=== PATIENT | male | born 1950 | race Caucasian/White ===

== ENCOUNTER 2021-09-30 10:02 | Outpatient (CLI) | payer MEDICARE, SELFPAY ==
--- NOTE | ~2021-09-30 | CT_ITS ---
EXAMINATION: CT diagnostic chest wo con DATE: 09/30/2021 11:07 INDICATION: Follow-up lung nodule TECHNIQUE: Computed tomography (CT) of the chest was performed without intravenous contrast. Automate d exposure control and iterative reconstruction technique were employed. Exam dose: 227.54 mGy-cm to zoey exam DLP. COMPARISON: None FINDINGS: Right upper lobe approximately 11.8 mm calcified pulmonary granuloma. No pulmonary infiltrate or consolidation. Normal heart size. No pericardial effusion. There is thoracic aortic and great vessel and coronary artery calcification. No thoracic aortic aneur ysm. No hilar or mediastinal mass lesion or lymphadenopathy. There are calcified right paratracheal and hi lar nodes. Normal morphology of the adrenal glands. No suspicious osteolytic or osteoblastic lesions. IMPRESSION: Calcified right upper lobe pulmonary granuloma and calcified right hilar and paratrachea l nodes, consistent with old granulomatous disease Reviewed, dictated and finalized at Location A. Reviewed, dictated and finalized at location B. IMPRESSION: Calcified right upper lobe pulmonary granuloma and calcified right hilar and paratracheal nodes, consistent with old granulomatous disease
== END 2021-09-30 10:03 | disposition home or self-care (01) ==
PROVIDERS: PCP Internal Medicine; Visit Provider Internal Medicine
DX: R91.1 Solitary pulmonary nodule (principal)
CPT/HCPCS: 71250

== ENCOUNTER 2021-10-20 08:41 | Outpatient (CLI) | payer MEDICARE, SELFPAY ==
--- NOTE | ~2021-10-20 | NM_ITS ---
EXAMINATION: NM stress w perf spect multi DATE: 10/20/2021 10:32 INDICATION: Other chest pain. TECHNIQUE: Rest images were obtained following intravenous administration of 10.5 mCi Tc99m tetrofosm in (Myoview). The patient performed an exercise activity. At peak exercise, 34.3 mCi Tc99m tetrofosmi n (Myoview) was administered intravenously, and stress images were obtained. Data was reconstructed i nto short axis and horizontal and vertical long axis SPECT images. Gated SPECT images were also obtai graciela. COMPARISON: Myocardial perfusion imaging 07/25/2006, chest CT 09/30/2021 FINDINGS: There is no definite reversible or fixed perfusion abnormality to suggest ischemia or infar ction. There is no segmental wall motion abnormality. Left ventricular ejection fraction measures 4 9%. IMPRESSION: 1. No definite ischemia or infarct. 2. Left ventricular ejection fraction measuring 49%. Reviewed, dictated and finalized at location A.
--- NOTE | 2021-10-20 09:28 | EST_ITS ---
Patient Info Name: Torsten Doe Age: 71 years : 1950 Gender: Male Ht: 73 in Wt: 192 lbs BSA: 2.13 m2 HR: 68 bpm BP: 128 / 75 mmHg Heart Rhythm: Sinus Rhythm Exam Date: 10/20/2021 9:39 AM Exam Location: [facility] Stress Patient Status: Outpatient Admit Date: 10/20/2021 Staff Ordering Physician: Lester Sen MD Attending Provider: Lester Sen MD Exercise Technologist: Cammy Benitez CT Exercise Physician: Jamari Conteh DO Exam Type: CA stress test treadmill w NM Study Info Indications R07.9 - Chest pain, unspecified A nuclear stress test was performed. Summary 1. 1. Negative Freddy exercise stress test for ischemic ST changes by ECG criteria. 2. 2. Good functional capacity, achieving 8.9 METs of workload. 3. 3. Hypertensive response to exercise. 4. 4. Appropriate HR response to exercise. 5. 5. Appropriate HR recovery at 1 minute post exercise. 6. 6. Nuclear scan to follow and will be reported separately. Please correlate with it. 7. 7. Patient informed of the above results. Protocol: Freddy Stress ECG Details Stage: REST Duration (min): 0 min : 57 sec Speed (mph): 0.0 Grade (%): 0 HR (bpm): 65 SBP (mmHg): 128 DBP (mmHg): 75 METS: --- Stage: REST Duration (min): 6 min : 17 sec Speed (mph): 0.0 Grade (%): 0 HR (bpm): 73 SBP (mmHg): 128 DBP (mmHg): 75 METS: --- Stage: STAGE 1 Duration (min): 1 min : 0 sec Speed (mph): 1.7 Grade (%): 10 HR (bpm): 88 SBP (mmHg): 128 DBP (mmHg): 75 METS: --- Stage: STAGE 1 Duration (min): 2 min : 0 sec Speed (mph): 1.7 Grade (%): 10 HR (bpm): 95 SBP (mmHg): 128 DBP (mmHg): 75 METS: --- Stage: STAGE 1 Duration (min): 3 min : 0 sec Speed (mph): 1.7 Grade (%): 10 HR (bpm): 101 SBP (mmHg): 203 DBP (mmHg): 77 METS: --- Stage: STAGE 2 Duration (min): 1 min : 0 sec Speed (mph): 2.5 Grade (%): 12 HR (bpm): 108 SBP (mmHg): 203 DBP (mmHg): 77 METS: --- Stage: STAGE 2 Duration (min): 2 min : 0 sec Speed (mph): 2.5 Grade (%): 12 HR (bpm): 144 SBP (mmHg): 210 DBP (mmHg): 92 METS: --- Stage: STAGE 2 Duration (min): 3 min : 0 sec Speed (mph): 2.5 Grade (%): 12 HR (bpm): 134 SBP (mmHg): 210 DBP (mmHg): 92 METS: --- Stage: STAGE 3 Duration (min): 0 min : 50 sec Speed (mph): 3.4 Grade (%): 14 HR (bpm): 122 SBP (mmHg): 210 DBP (mmHg): 92 METS: --- Stage: RECOVERY Duration (min): 0 min : 9 sec Speed (mph): 1.5 Grade (%): 0 HR (bpm): 146 SBP (mmHg): 210 DBP (mmHg): 92 METS: --- Stage: RECOVERY Duration (min): 1 min : 9 sec Speed (mph): 0.0 Grade (%): 0 HR (bpm): 102 SBP (mmHg): 228 DBP (mmHg): 75 METS: --- Stage: RECOVERY Duration (min): 2 min : 9 sec Speed (mph): 0.0 Grade (%): 0 HR (bpm): 91
--- NOTE | 2021-10-20 10:24 | ECHO_ITS ---
Patient Info Name: Torsten Doe Age: 71 years : 1950 Gender: Male Ht: 73 in Wt: 192 lbs BSA: 2.13 m2 HR: 66 bpm BP: 128 / 75 mmHg Heart Rhythm: Sinus Rhythm Technical Quality: Good Exam Date: 10/20/2021 10:49 AM Exam Location: [facility] Pulmonary Patient Status: Outpatient Admit Date: 10/20/2021 Staff Ordering Physician: Lester Sen MD Supervisor In Charge: Milagro Ca RDCS Attending Provider: Lester Sen MD Referring Physician: Mckinley MUSTAFA; Exam Type: CA echo doppler color flow Study Info Indications R07.89 - Other chest pain Complete two-dimensional, color flow and Doppler transthoracic echocardiogram is performed. Summary 1. Complete two-dimensional, color flow and Doppler transthoracic echocardiogram is performed. 2. Left ventricular chamber dimension is normal. 3. Left ventricular systolic function is normal, estimated at 55-60%. 4. The left ventricular diastolic function is grade I diastolic dysfunction. 5. E/e' 11 is mildly elevated. 6. Left atrial chamber dimension is mildly enlarged. 7. Interatrial septal aneurysm with no evidence of shunting. 8. The mitral valve has mildly calcified annulus. 9. No pulmonary hypertension, estimated pulmonary arterial systolic pressure is 21 mmHg. Left Ventricle E/e' 11 is mildly elevated. Left ventricular chamber dimension is normal. Left ventricular systolic function is normal, estimated at 55-60%. The left ventricular diastolic function is grade I diastolic dysfunction. Right Ventricle Right ventricular systolic function is normal and with normal TAPSE 1.8 cm. Right ventricular chamber dimension is normal. Left Atria Left atrial chamber dimension is mildly enlarged. Right Atria Right atrial chamber dimension is normal. Atrial Septum Interatrial septal aneurysm with no evidence of shunting. Aortic Valve The aortic valve is trileaflet. There is no aortic valve stenosis. There is no aortic valve regurgitation. Pulmonic Valve There is no pulmonic regurgitation. Mitral Valve The mitral valve has mildly calcified annulus. There is no mitral valve stenosis. There is no mitral valve regurgitation. Tricuspid Valve There is no tricuspid valve regurgitation. No pulmonary hypertension, estimated pulmonary arterial systolic pressure is 21 mmHg. Pericardium/Pleural There is no pericardial effusion. Inferior Vena Cava Normal inferior vena cava with >50% collapse upon inspiration consistent with normal right atrial pressure, 5 mmHg. Aorta The aortic root size at the sinus of Valsalva is normal. Left Ventricular Outflow Tract Name Value Normal LVOT 2D LVOT Diameter 2.2 cm LVOT Doppler LVOT Peak Gradient 3 mmHg LVOT Mean Gradient 1 mmHg LVOT VTI 17 cm LVOT VTI/AV VTI Ratio 0.6 LVOT Stroke Volume 64 ml LVOT CO 4.2 l/min LVOT CI 2.0 l/min/m2 Pulmonic Valve
== END 2021-10-20 08:42 | disposition home or self-care (01) ==
PROVIDERS: PCP Internal Medicine; Visit Provider Internal Medicine
DX: R07.89 Other chest pain (principal); R06.02 Shortness of breath
CPT/HCPCS: 78452; 93017; 93306; A9502

== ENCOUNTER 2023-04-26 09:47 | Outpatient (CLI) | payer MEDICARE, SELFPAY | END 2023-04-26 09:48 | disposition home or self-care (01) | LOC: ANHAUDIO 09:47 | PROVIDERS: PCP Internal Medicine; Visit Provider Internal Medicine | DX: H93.13 Tinnitus, bilateral (principal) | CPT/HCPCS: 92557; 92567 ==

== ENCOUNTER 2023-08-04 13:55 | Outpatient (CLI) | payer MEDICARE, SELFPAY ==
--- NOTE | ~2023-08-04 | US_ITS ---
US art doppler w press LE BI INDICATION: Muscle weakness TECHNIQUE: Segmental pressures and plethysmographic and Doppler waveforms of the brachial and lower e xtremity arteries were obtained. COMPARISON: None. FINDINGS: Right and left brachial artery pressures of 132 mm Hg and 137 mm Hg, respectively, are concordant (no rmal difference <= 30 mmHg). There is biphasic flow in the lower extremity arteries bilaterally. No s ignificant pressure gradients identified. The right ankle-brachial index (FREDA) is 1.39 (normal >= 0.9-1.0). The right great toe-brachial index (TBI) is 0.61 (normal >= 0.60). The left FREDA is 1.32. The left TBI is 0.62. IMPRESSION: 1. Normal bilateral ankle and toe brachial indices. Reviewed, dictated and finalized at location A.
== END 2023-08-04 13:56 | disposition home or self-care (01) ==
LOC: ANHIMG 13:56
PROVIDERS: PCP Internal Medicine; Visit Provider Internal Medicine
DX: I70.213 Atherosclerosis of native arteries of extremities with intermittent claudication, bilateral legs (principal); M79.604 Pain in right leg; M79.605 Pain in left leg; M62.81 Muscle weakness (generalized)
CPT/HCPCS: 93923

== ENCOUNTER 2023-08-16 09:51 | Outpatient (CLI) | payer MEDICARE, SELFPAY ==
--- NOTE | 2023-08-16 11:30 | NEURO_ITS ---
Impression: # Insulin dependent Diabetic complains of increasing numbness in lower extremities. # No motor or sensory electrical responses obtained. # Needle/EMG exam revealed severe scarcity of motor unit potentials with fibs. # Clinical correlation recommended. Nerve Conduction Studies Anti Sensory Summary Table Stim Site NR Peak (ms) P-T Amp (?V) Site1 Site2 Delta-P (ms) Dist (cm) (m/s) Left Saphenous Anti Sensory (Ant Med Mall) NO RESPONSE 14cm NR 14cm Ant Med Mall 0.0 Right Saphenous Anti Sensory (Ant Med Mall) NO RESPONSE 14cm NR 14cm Ant Med Mall 0.0 Left Sup Fibular Anti Sensory (Ant Lat Mall) NO RESPONSE 14 cm NR 14 cm Ant Lat Mall 16.0 Right Sup Fibular Anti Sensory (Ant Lat Mall) NO RESPONSE 14 cm NR 14 cm Ant Lat Mall 16.0 Left Sural Anti Sensory (Lat Mall) NO RESPONSE Calf NR Calf Lat Mall 16.0 Right Sural Anti Sensory (Lat Mall) NO RESPONSE Calf NR Calf Lat Mall 16.0 Motor Summary Table Stim Site NR Onset (ms) O-P Amp (mV) Site1 Site2 Delta-0 (ms) Dist (cm) (m/s) Left Peroneal Motor (Vastus Med) NO RESPONSE Ankle NR Popit Ankle 0.0 Popit NR Right Peroneal Motor (Vastus Med) NO RESPONSE Ankle NR Popit Ankle 0.0 Popit NR Left Tibial Motor (Abd Felder Brev) NO RESPONSE Ankle NR Knee NR Right Tibial Motor (Abd Felder Brev) NO RESPONSE Ankle NR Knee NR F Wave Studies NR F-Lat (ms) L-R F-Lat (ms) Left Peroneal (Mrkrs) (EDB) NO RESPONSE NR Right Peroneal (Mrkrs) (EDB) NO RESPONSE NR Left Tibial (Mrkrs) (Abd Hallucis) NO RESPONSE NR Right Tibial (Mrkrs) (Abd Hallucis) NO RESPONSE NR EMG Side Muscle Nerve Root Ins Act Fibs Amp Dur Recrt Comment Right AntTibialis Dp Br Fibular L4-5 Nml Nml Decr >12ms +2 Right Fibularis Long Sup Br Fibular L5-S1 Nml +1 Decr >12ms +2 Right Gastroc Tibial S1-2 Nml Nml Decr >12ms +2 Right Flex Dig Long Tibial L5-S2 Nml +1 Nml Nml Nml Right Ext Dig Brev Dp Br Fibular L5, S1 Nml Nml Decr >12ms +2 Left AntTibialis Dp Br Fibular L4-5 Nml Nml Decr >12ms +2 Left Gastroc Tibial S1-2 Nml Nml Decr >12ms +2 Left Fibularis Long Sup Br Fibular L5-S1 Nml +1 Decr >12ms +2 Left Flex Dig Long Tibial L5-S2 Nml +1 Decr >12ms +2 Left Ext Dig Brev Dp Br Fibular L5, S1 Nml Nml Nml >12ms +4 MTDD
== END 2023-08-16 09:52 | disposition home or self-care (01) ==
LOC: ANHNEURO 09:52
PROVIDERS: PCP Internal Medicine; Visit Provider Internal Medicine
DX: R20.2 Paresthesia of skin (principal); M62.81 Muscle weakness (generalized)
CPT/HCPCS: 95886; 95911

== ENCOUNTER 2024-10-11 02:00 | Day surgery (SDC) | payer MEDICARE, SELFPAY ==
[2024-10-04 08:48] VITALS: BMI 25.4
--- OUTSIDE RECORDS SUMMARY | 2024-10-11 02:03 | XMS_ITS | Continuity of Care Document ---
Author Organization [facility] Address [address] [facility] [address] [place] [address] Phone Care Team Providers Care Substance Abuse Prevention Coordinator Name Role Phone Elia VICTORIA, Yung Unavailable Unavailable Allergies, Adverse Reactions, Alerts Substance Reaction Status Criticality No Known Allergies Active No Inform ation Medications Medication Instructions Dosage Effective Dates (start - stop) Status Comments Mucinex D 60 mg-600 mg tablet,extended release take 1 tablet by oral route every 12 hours as needed - Active Synjardy 12.5 mg-1,000 mg tablet take 1 tablet by oral route 2 times every day 1.00 tablet - Active rosuvastatin 40 mg tablet take 1 tablet by oral route every day 40 MG - Active Humalog KwikPen U-200 Insulin 200 unit/mL (3 mL) subcutaneous inject by subcutaneous route per prescriber's instructions. Insulin dosing requires individualization. 0.00 - Active Tresiba FlexTouch U-100 insulin 100 unit/mL (3 mL) subcutaneous pen inject by subcutaneous route as per insulin protocol 0.00 - Active Vitamin D3 400 unit capsule - Active losartan 50 mg tablet take 1 tablet by oral route every day 50 MG - Active multivitamin capsule take 1 capsule by oral route every day - Active Procedures Procedure Date EYE EXAM & TREATMENT EYE EXAM ESTABLISHED PAT POSTOP FOLLOW-UP VISIT AFTER CATARACT LASER SURGERY OFFICE/OUTPATIENT VISIT, EST POSTOP FOLLOW-UP VISIT POSTOP FOLLOW-UP VISIT POSTOP FOLLOW-UP VISIT CATARACT SURG W/IOL, 1 STAGE OFFICE/OUTPATIENT VISIT, NEW OPHTHALMIC BIOMETRY OPHTHALMIC BIOMETRY Medical Records Advance Directives Directive Yes / No Effective Date File Name No Information Encounters Encounter Description Practice Location Reason(s) For Visit Diagnoses Date Provider Providers Copied on Encounter [facility], [address] [place] [address], [id number], tel:[phone] OPH CONSULT YESSICA GRANDE Diabetes f/u (chief complaint) Presence of pseudophakiaT ype 2 diabetes mellitus with mild nonproliferat edith diabetic retinopathy without macular edema, bilateralDerm atochalasis of right upper eyelidDermato chalasis of left upper eyelid 0 Elia Barragan. [address] [place] [address], [place] [address], [place], [address], [place]. tel:[phone] Referring Provider: Lester Sen MD, [address], [place], [address]. tel:[phone] [facility], [address] [place] [address], [place], [place], [id number], [place] tel:[phone] OPH CONSULT YESSICA GRANDE DM (chief complaint)I OL check (chief complaint) Type 2 diabetes mellitus without complications Presence of pseudophakiaT ear film insufficiency of bilateral lacrimal glands Elia Barragan. [address] [place] [address], [place] [address], [place], [address], [place]. tel:[phone] [facility], [address] [place] [address], [place], [place], [id number], [place] tel:[phone] OPH CONSULT YESSICA GRANDE vision is improved OS (chief complaint)n o complaints OU (chief complaint) No Information Elia Barragan. [address] [place] [address], [place] [address], [place], [address], [place]. tel:[phone] Referring Provider: Yung Cruz, [address] [place] [address], [place], [address]. tel:[phone] [facility], [address] [place] [address], [id number], [place] tel:[phone] [facility] No Information 5 Elia Barragan. [address] [place] [address], [facility] [address], [place], [address], [place]. tel:[phone] Referring Provider: Yung Cruz, [address] [place] [address] [address], [place], [address]. tel:[phone] OFFICE/OUTPA TIENT VISIT, [facility], [address] [place] [address], [place], [place], [id number], [place] tel:[phone] [facility] [address] No Information 5 Elia Barragan. [address] [place] [address], [place] [address], [place], [address], [place]. tel:[phone] Referring Provider: Yung Cruz, [address] [place] [address], [place], [address]. tel:[phone] [facility], [address] [place] [address], [place], [place], [id number], [place] tel:[phone] OPH CONSULT YESSICA GRANDE no complaints OS (chief complaint) No Information 3 Elia Barragan. [address] [place] [address], [facility] [address], [place], [address], [place]. tel:[phone] Referring Provider: Yung Cruz, [address] [place] [address], [place], [address]. tel:[phone] [facility], [address] [place] [address], [place], [place], [id number], [place] tel:[phone] OPH CONSULT YESSICA GRANDE thought that when lenses were disc. that OS (chief complaint) No Information 3 Elia Barragan. [address] [place] [address], [place] [address], [place], [address], [place]. tel:[phone] Referring Provider: Yung Cruz, [address] [place] [address], [place], [address]. tel:[phone] [facility], [address] [place] [address], [place], [place], [id number], [place] tel:[phone] OPH CONSULT YESSICA GRANDE no complaints OS (chief complaint) No Information 3 Elia Barragan. [address] [facility], [address], [place], [address], [place]. tel:[phone] Referring Provider: Yung Cruz, [address] [place] [address] [address], [place], [address]. tel:[phone] [facility], [address] [place] [address], [place], [place], [id number], [place] tel:[phone] [facility] [place] No Information 3 Elia Barragan. [address] [place] [address], [address], [place], [address], [place]. tel:[phone] Referring Provider: Yung Cruz, [address] [place] [address] [address], [place], [address]. tel:[phone] OFFICE/OUTPA TIENT VISIT, [facility], [address] [place] [address], [place], [place], [id number], [place] tel:[phone] OPH CONSULT YESSICA GRANDE Cortical senile cataractLens replaced by other meansDiabetes Mellitus, Juvenile, ControlledPre sbyopia 3 Elia Barragan. [address] [place] [address], [address], [place], [address], [place]. tel:[phone] Referring Provider: Yung Cruz, [address] [place] [address] [address], [place], [address]. tel:[phone] [facility], [address] [place] [address], [place], [place], [id number], [place] tel:[phone] OPH CONSULT YESSICA GRANDE No Information 3 Elia Barragan. [address] [place] [address], [address], [place], [address], [place]. tel:[phone] Referring Provider: Yung Cruz, [address] [place] [address] [address], [address]. tel:[phone] Family History Family Member Type Diagnosis Age At Onset No Information Payers Payer name Insurance type Covered constitution party ID Authormorenaa tiambika(s) No Information Social History Type Description Quantity Date Captured Comments Alcohol Use Details 1 drink moderate 0 Caffeine Use Details Unknown Tobacco Use Status No Information Smoking Status Never smoker Sex Male Chief Complaint And Reason For Visit From encounter dated '05/24/2019 08:10'. Diabetes f/u (chief complaint). Description: The 68 year old male presents for a 6 month f/u evaluation of Diabetes. Pt has no complaints today. VA is unchanged. Pt uses readers and has no issues. Noeye pain or discomfort. Last A1C was around 7 taken a couple months ago. Reason For Referral Reason For Referral No Information History Of Present Illness Encounter Date Complaint History Of Prese nt Illness Diabetes f/u The 68 year old male presents for a 6 month f/u evaluation of Diabetes. Pt has no complaints today. VA is unchanged. Pt uses readers and has no issues. No eye pain or discomfort. Last A1C was around 7 taken a couple months ago. DM The 68 year old male presents for evaluation of DM in the right eye and left eye. Last exam was about 4 year(s) ago. The condition is constant. The condition is stable. Pt is followed by Dr. Sen and last A1C is unknown. Avg AM BS 125. IOL check The patient is p resent for evaluation of IOL check in the right eye and left eye. Last exam was about 1 year(s) ago. The condition is constant. The condition is stable. PT reports distance and near vision are stable OU and has been wearing otc readers. vision is improved vision is imp roved OS no complaints no complaints OU no complaints no complaints OS thought that when le nses were disc. that thought that when lenses were disc. that OS no complaints no complaints OS Functional Status Date Functional Assessmen t No Information Instructions Date Instruction Additional Infor john Impression/Plan Related to [place] tochalasis of right upper eyelid Impression/Plan Related to [place] tochalasis of left upper eyelid Impression/Plan Related to Type 2 diabetes mellitus with mild nonproliferative diabetic retinopathy without macular edema, bilateral Impression/Plan Related to Prese nce of pseudophakia RTO 1 yr Complete Exam with BAS Related to Tear film insufficiency of bilateral lacrimal glands Impression/Plan Related to Type 2 diabetes mellitus without complications Impression/Plan Related to Prese nce of pseudophakia Impression/Plan Related to Tear film insufficiency of bilateral lacrimal glands - Return in 3 months Related to Cataract 1 month - Return in 3 weeks Related to C ataract 1 week - Return in 1 week. Related to C ataract 1 day, 2nd eye Presbyopia OS - Gave pt sample of +2.00 contact lens (Acuvue Oasys) so he can try monovision to decide if he wants to go with that for surgery. Yoselin explained to patient that if he wants an rx beyond the trial lens, he will have to come in for a fitting Related to Presbyopia Cataract, Cortical O S Pseudophakia OD Diabetes Mellitus, Juvenile, Controlled OD - schedule L phaco & pcl monovision (1.75 ) pt not sure if he wants monovisionwill think about it and decide before sx Related to Diabetes Mellitus, Juvenile, Controlled - Return in 1 day wi Yung Rodrigez MD for post op exam. Related to Diabetes Mellitus, Juvenile, Controlled Assessments Type Assessment Date assessment Presence of pseudophakia 2019 impression Presence of pseudophakia: Z96.1 assessment Type 2 diabetes boogie itus with mild nonproliferative diabetic retinopathy without macular edema, bilateral impression Type 2 diabetes boogie itus with mild nonproliferative diabetic retinopathy without macular edema, bilateral: E11.3293 assessment Dermatochalasis of right upper e yelid assessment Dermatochalasis of left upper ey elid impression Dermatochalasis of left upper ey elid: H02.834 impression Dermatochalasis of right upper e lyndond: H02.831 Patient Care Teams Name Effective Dates (start - stop) Status Members No Information
[2024-10-11 06:24] VITALS: BP 113/68; PULSE 104; RESP 20; TEMP 36.4; O2SAT 100; BMI 25.4
[2024-10-11] MEDS: LACTATED RINGERS 1,000 ML 150 ML IV CONT (06:38)
--- NOTE | 2024-10-11 06:39 | SUR.PREOP ---
Blood Sugar 139 per pt's glucose monitoring patch.
--- NOTE | 2024-10-11 07:05 | P.PNAN_ITS ---
Anes - Initial Pre Proc Eval Procedure: Operation Date: 10/11/24 07:30 Proposed Procedures p Colonoscopy - Angelito Ramos MD Date/Time: 10/11/24 07:05 Surgeon: Angelito Ramos MD Pre Op Diagnosis: Personal hx of colon polyps Patient Data Age: 74 Gender: M Height: 1.83 m Weight: 85.2 kg Last Vital Signs Temp 36.4 C 10/11/24 06:24 Pulse 104 H 10/11/24 06:24 Resp 20 10/11/24 06:24 BP 113/68 10/11/24 06:24 Pulse Ox 100 10/11/24 06:24 O2 Del Method Room Air 10/11/24 06:24 Allergies Allergy/AdvReac Type Severity Reaction Status Date / Time No Known Allergies Allergy Verified 10/11/24 06:22 Home Medications ?Medication ?Instructions ?Recorded ?Confirmed ?Type omega-3 fatty acids 1,000 mg 1,200 mg PO DAILY 06/15/21 10/11/24 History capsule (Fish Oil Concentrate) aspirin 81 mg tablet,delayed 81 mg PO DAILY 09/07/21 10/11/24 History release (Adult Low Dose Aspirin) fluticasone propionate 50 2 spray intranasal BID #16 grams 10/31/23 10/11/24 Rx mcg/actuation nasal spray,suspension (Flonase Allergy Relief) glucagon 1 mg/0.2 mL subcutaneous 1 mg (0.2 mL) subcut ONCE #0.4 mL 12/15/23 10/04/24 Rx auto-injector (Gvoke HypoPen 2-Pack) testosterone cypionate 200 mg/mL 200 mg IM WEEKLY #10 mL 01/02/24 10/04/24 Rx intramuscular oil insulin lispro 100 unit/mL 8 unit (0.08 mL) subcut TIDWMEAL 01/30/24 10/11/24 Rx subcutaneous pen (Humalog KwikPen #15 mL (U-100) Insulin) Pen needle #50 ea 04/30/24 04/30/24 Rx fenofibrate 54 mg tablet 54 mg PO DAILY #90 tabs 04/30/24 10/11/24 Rx rosuvastatin 10 mg tablet 10 mg PO DAILY #90 tabs 04/30/24 10/11/24 Rx flash glucose scanning reader #1 ea 05/03/24 Rx (FreeStyle [place] 2 [place]) flash glucose sensor (FreeStyle #1 ea 05/03/24 Rx Maryse 2 Sensor kit) losartan 50 mg tablet See Rx Instructions .Route 05/29/24 10/11/24 Rx .COMPLEX #100 tabs insulin degludec 200 unit/mL (3 See Rx Instructions .Route .COMPLEX 10/04/24 10/11/24 History mL) subcutaneous pen (Tresiba FlexTouch U-200 insulin) empagliflozin 25 mg tablet 25 mg PO DAILY #90 tabs 10/10/24 10/11/24 Rx (Jardiance) Patient hx anesthesia problems: none Family hx anesthesia problems: none Results Review: All pre-operative results and documents have been reviewed as part of the pre-operative evaluation. [facility] Past Medical History Medical History (Updated 04/30/24 @ 14:53 by Sheree Jerez [facility]) BMI 25.0-25.9,adult Tinnitus Trigger finger of left hand Muscle weakness Personal history of COVID-19 Rash Pyogenic granuloma Congestion of right ear Sore throat Chest pressure SOB (shortness of breath) Prostate cancer screening Encounter for routine adult health examination with abnormal findings BMI 27.0-27.9,adult Lung nodule Encounter for routine adult health examination without abnormal findings BMI 26.0-26.9,adult Hypogonadism in male Otitis media Swelling of lymph node Abnormal finding of blood chemistry, unspecified Encounter for special screening examination for neoplasm of prostate Encounter for Medicare annual wellness exam Benign essential hypertension Colon cancer screening Hx of thyroid nodule On intermodal owner operator truck driver drug therapy Hyperlipidemia DM type 2 (diabetes mellitus, type 2) Surgical History Surgical History S/P cataract surgery Family History Family History Father Family history of lung cancer Patient's father is Mother Cerebrovascular accident Social History Social History Social History: Caffeine-decaf coffee Smoking status: Never smoker Alcohol intake: current Substance use: never Substance use type: does not use Lack of Transportation: No Lack of Food: Never True Current Housing: I Have Housing Concerned About Future Housing: No Difficulty Paying Gas/Electric Bills: No Difficulty Paying for Meds: No Currently Unemployed: No Education: High School Diploma/GED Difficulty w/ Childcare or Family Care: No Living arrangements: with family Occupation/Education: occupation Gender identity (if verbalized by the patient): Male Spiritual care concerns: No Anes - Eval Final PreProcedure Day of Procedure 10/11/24 07:05 Patient weight: overweight Heart: regular rate and rhythm Lungs: clear to auscultation Airway: Mallampati scale class II Neurological: alert and oriented Last oral intake: >/= 8 hours ASA classification: III Emergent: no Anesthetic plan: proceed Anesthesia type and monitoring: general GIVS and standard monitoring Results Review: All pre-operative results and documents have been reviewed as part of the pre- operative evaluation. Informed Consent: The patient's anesthetic plan and its attendant risks and benefits were discussed with the patient/family/POA. Questions were solicited and answers provided to the satisfaction of the patient/family/POA.
--- NOTE | 2024-10-11 07:23 | P.HP_ITS ---
H&P: [facility] History of Present Illness Date/Time: 10/11/24 07:23 Chief Complaint: history of colon polyps Narrative: The patient has a history of colonic polyps, the last colonoscopy was 5 years ago. Review of Systems Review of Systems: All systems reviewed & are unremarkable except as noted in HPI and below [facility] Past Medical History Medical History (Updated 04/30/24 @ 14:53 by Sheree Jerez [facility]) BMI 25.0-25.9,adult Tinnitus Trigger finger of left hand Muscle weakness Personal history of COVID-19 Rash Pyogenic granuloma Congestion of right ear Sore throat Chest pressure SOB (shortness of breath) Prostate cancer screening Encounter for routine adult health examination with abnormal findings BMI 27.0-27.9,adult Lung nodule Encounter for routine adult health examination without abnormal findings BMI 26.0-26.9,adult Hypogonadism in male Otitis media Swelling of lymph node Abnormal finding of blood chemistry, unspecified Encounter for special screening examination for neoplasm of prostate Encounter for Medicare annual wellness exam Benign essential hypertension Colon cancer screening Hx of thyroid nodule On residential drug therapy Hyperlipidemia DM type 2 (diabetes mellitus, type 2) Surgical History Surgical History S/P cataract surgery Family History Family History Father Family history of lung cancer Patient's father is Mother Cerebrovascular accident Social History Social History Social History: Caffeine-decaf coffee Smoking status: Never smoker Alcohol intake: current Substance use: never Substance use type: does not use Lack of Transportation: No Lack of Food: Never True Current Housing: I Have Housing Concerned About Future Housing: No Difficulty Paying Gas/Electric Bills: No Difficulty Paying for Meds: No Currently Unemployed: No Education: High School Diploma/GED Difficulty w/ Childcare or Family Care: No Living arrangements: with family Occupation/Education: occupation Gender identity (if verbalized by the patient): Male Spiritual care concerns: No Meds Home Medications and Allergies Home Medications ?Medication ?Instructions ?Recorded ?Confirmed ?Type omega-3 fatty acids 1,000 mg 1,200 mg PO DAILY 06/15/21 10/11/24 History capsule (Fish Oil Concentrate) aspirin 81 mg tablet,delayed 81 mg PO DAILY 09/07/21 10/11/24 History release (Adult Low Dose Aspirin) fluticasone propionate 50 2 spray intranasal BID #16 grams 10/31/23 10/11/24 Rx mcg/actuation nasal spray,suspension (Flonase Allergy Relief) glucagon 1 mg/0.2 mL subcutaneous 1 mg (0.2 mL) subcut ONCE #0.4 mL 12/15/23 10/04/24 Rx auto-injector (Gvoke HypoPen 2-Pack) testosterone cypionate 200 mg/mL 200 mg IM WEEKLY #10 mL 01/02/24 10/04/24 Rx intramuscular oil insulin lispro 100 unit/mL 8 unit (0.08 mL) subcut TIDWMEAL 01/30/24 10/11/24 Rx subcutaneous pen (Humalog KwikPen #15 mL (U-100) Insulin) Pen needle #50 ea 04/30/24 04/30/24 Rx fenofibrate 54 mg tablet 54 mg PO DAILY #90 tabs 04/30/24 10/11/24 Rx rosuvastatin 10 mg tablet 10 mg PO DAILY #90 tabs 04/30/24 10/11/24 Rx flash glucose scanning reader #1 ea 05/03/24 Rx (FreeStyle [place] 2 [place]) flash glucose sensor (FreeStyle #1 ea 05/03/24 Rx Maryse 2 Sensor kit) losartan 50 mg tablet See Rx Instructions .Route 05/29/24 10/11/24 Rx .COMPLEX #100 tabs insulin degludec 200 unit/mL (3 See Rx Instructions .Route .COMPLEX 10/04/24 10/11/24 History mL) subcutaneous pen (Tresiba FlexTouch U-200 insulin) empagliflozin 25 mg tablet 25 mg PO DAILY #90 tabs 10/10/24 10/11/24 Rx (Jardiance) Allergies Allergy/AdvReac Type Severity Reaction Status Date / Time No Known Allergies Allergy Verified 10/11/24 06:22 Vital Signs Vital Signs - 24 hr 10/11/24 06:24 Temperature 97.6 F Pulse Rate 104 H Respiratory Rate 20 Blood Pressure 113/68 Pulse Oximetry 100 Oxygen Delivery Room Air Exam Const: General: cooperative and healthy appearing Resp: Effort & Inspection: normal respiratory effort and able to speak in complete sentences Auscultation: clear to auscultation bilaterally Cardio: Rate: regular rate Rhythm: regular rhythm GI: Inspection: normal to inspection GI Palp: No No hepatosplenomegaly present Auscultation: normal bowel sounds Rectal Exam: deferred Skin: General skin exam: normal color Psych: Appearance: grossly normal Mental Status: mental status grossly normal Assessment and Plan Assessment and plan (1) Colon cancer screening: Code(s): Z12.11 - Encounter for screening for malignant neoplasm of colon Status: Acute Assessment and Plan: The patient is deemed a good candidate for the procedure. Consent signed. Will proceed.
[2024-10-11 08:12] VITALS: BP 102/60; PULSE 68; RESP 18; O2SAT 99
[2024-10-11 08:18] VITALS: BP 97/63; PULSE 66; RESP 18; O2SAT 99
[2024-10-11 08:29] VITALS: BP 115/69; PULSE 67; RESP 18; O2SAT 100
== END 2024-10-11 08:32 | disposition home or self-care (01) ==
PROVIDERS: PCP Internal Medicine; Referring Provider Internal Medicine; Visit Provider Internal Medicine Gastroenterology
PROC: 0DJD8ZZ Inspection of Lower Intestinal Tract, Via Natural or Artificial Opening Endoscopic (ICD-10-PCS; CPT 45378; principal; 2024-10-11 07:30)
DX: Z12.11 Encounter for screening for malignant neoplasm of colon (principal); E29.1 Testicular hypofunction; I10 Essential (primary) hypertension; E11.9 Type 2 diabetes mellitus without complications; Z79.82 Long term (current) use of aspirin; Z79.4 Long term (current) use of insulin; Z79.84 Long term (current) use of oral hypoglycemic drugs; Z79.899 Other long term (current) drug therapy; Z98.890 Other specified postprocedural states; Z86.0100 Personal history of colon polyps, unspecified; Z80.1 Family history of malignant neoplasm of trachea, bronchus and lung; Z82.49 Family history of ischemic heart disease and other diseases of the circulatory system
CPT/HCPCS: G0105; J2003; J2704; J7120